=== PATIENT | female | born 1985 | race Caucasian/White ===

== ENCOUNTER 2022-06-13 09:01 | Outpatient (CLI) | payer BC, SELFPAY ==
--- NOTE | 2022-06-13 09:15 | CRLHL7_ITS ---
For Patients: As a result of the Century Cures Act, medical imaging exams and procedure reports are released immediately into your electronic medical record. You may view this report before your referring provider. If you have questions, please contact your health care provider. Indication: RT HIP PAIN Procedure : Informed consent was obtained. The site was marked. Time-out was performed. The skin of the right hip was cleansed with ChloraPrep. A sterile drape was placed. 8 cc of 1 percent lidocaine was administered for superficial anesthesia. Subsequently a 22 gauge spinal needle was introduced into the right hip joint under intermittent fluoroscopic guidance. Injection of 2 cc nonionic Omnipaque 240 contrast confirmed intra-articular location. Subsequently 11 cc of dilute gadolinium were injected. The needle was removed and hemostasis achieved with direct pressure. A dressing was placed. The patient tolerated the procedure well without immediate complication and was immediately sent to MRI for imaging. Total fluoroscopy time 18 seconds. Impression: Successful fluoroscopically guided right hip arthrogram for MRI. Dictated by Itz Dos Santos MD @ 06/13/2022 10:30:54 AM (Electronically Signed)
--- NOTE | 2022-06-13 10:15 | MR_ITS ---
[address] [address] Phone:?[phone] Fax:?[phone] Referring Physician Information: Bolivar Mccann M.D. [address] [facility] [facility] [address] Phone:?[phone] Fax:?[phone] Patient:Familia Sahni D.O.B:?1985 Sex:?Female Phone:?[phone] [facility] MRN:?[id number] Exam Date:?06/13/2022 ? EXAM: MR ARTHROGRAM EXAMINATION OF THE RIGHT HIP CLINICAL INFORMATION: Right hip pain. Running injury. TECHNICAL INFORMATION: The study was performed following the intraarticular injection of a dilute gadolinium solution. Axial, coronal and sagittal dual-echo imaging of the hip was performed in addition to coronal STIR and coronal T1-weighted images of both hips and the pelvis. T1 sagittal and coronal fat sat were also performed. There are no prior studies available for comparison. INTERPRETATION: Hip joint: The hip joint is distended with contrast material status post arthrogram injection. No discrete loose body is seen. No subchondral edema signal or cystic change. No evidence for AVN involving the femoral head. There is a moderate to marked appearance of marrow edema signal along the mid to inferior aspect of the medial, compressive surface of the right femoral neck continuing just into the lesser trochanter. No appreciable changes of periostosis. No evidence for a discrete fracture line. The articular cartilage of the right hip joint appears preserved. Series 8 images 13 and 14 demonstrate a 6 moderate segment of deep linear tearing involving the anterosuperior aspect of the labrum. No evidence for an adjacent paralabral ganglion cyst. No appreciable decreased offset involving the femoral head/neck junction. No evidence for acetabular retroversion. The gluteus tendon insertions onto the greater trochanter are intact without tear or significant tendinopathy. No evidence of fluid signal abnormality to indicate trochanteric bursitis. Intact appears of the iliopsoas muscle and tendon insertions. No evidence for iliopsoas bursitis. Bones and joints: No evidence for an occult fracture/stress reaction involving the sacrum. There is a mild/early appearance of degenerative appearing inferior right SI joint arthrosis with mild adjacent marrow edema signal. There is no other bone marrow edema pattern identified. Musculotendinous structures: No evidence of acute musculotendinous injury. Specifically, no evidence of acute muscle tear, hematoma or other edema pattern. Intrapelvic contents: No free fluid seen within the pelvis. No discrete intrapelvic mass is identified. Neurovascular structures: No discrete cyst, mass or other compression upon the portions visualized of sciatic or femoral nerves. CONCLUSION: 1. MRI appearance in keeping with occult bony stress injury of the right femoral neck. Moderate to marked marrow edema signal along the mid to inferior aspect of the medial, compressive surface of the femoral neck continuing just into the lesser trochanter. No appreciable periostosis and without discrete fracture line. On the prior exam of February 2022, there was periostosis involving the femur in this area. 2. Approximate 6 mm segment of deep linear tear involving the anterosuperior aspect of the labrum, without evidence for a paralabral ganglion cyst. 3. The articular cartilage of the hip joint is seen to be preserved. 4. No evidence for AVN involving the femoral head. 5. No convincing MRI evidence for morphologic predisposition to femoroacetabular impingement. KES Electronically signed on 06/13/2022 1:03:00 PM by Tone Sheppard M.D.
== END 2022-06-13 09:02 | disposition home or self-care (01) ==
PROVIDERS: PCP Family Medicine; Visit Provider Family Medicine
DX: M25.551 Pain in right hip (principal); M25.851 Other specified joint disorders, right hip; X50.3XXA Overexertion from repetitive movements, initial encounter
CPT/HCPCS: 73525; 73722; 77002; A9575; Q9966

== ENCOUNTER 2023-11-06 08:00 | Outpatient (RCR) | payer OTHER, SELFPAY | END 2024-03-05 23:59 | disposition home or self-care (01) | PROVIDERS: PCP Family Medicine; Visit Provider Family Medicine | DX: M62.89 Other specified disorders of muscle (principal); R27.8 Other lack of coordination; Z51.89 Encounter for other specified aftercare | CPT/HCPCS: 97110; 97112; 97140; 97162 ==